=== PATIENT | male | born 1955 | race African-American/Black ===

== ENCOUNTER 2016-07-08 23:52 | Emergency (ER) | payer OTHER ==
[~2016-07-08] VITALS: Ht 188 cm; Wt 68.0 kg
--- NOTE | ~2016-07-08 | EKG ---
[address] [place] [address] ELECTROCARDIOGRAM REPORT Name: CARIDAD JORDAN Room #: DEP JULIANNA West#: [id number] Admission: 07/08/16 Attend Phys: Discharge: 07/09/16 Date of : 55 Report #: [id number] THIS REPORT FOR: //name// [facility] ED Test Date: 2016-07-09 Test Time: 00:04:02 Pat Name: CARIDAD JORDAN Department: Room: Gender: M [employer] Digging Machine Operator: REZA : 1955 Requested By: Gloria Gonzalez Order Number: [id number] MD: Measurements Intervals Edward Rate: 64 P: 80 SC: 193 QRS: 11 QRSD: 98 T: 83 QT: 402 QTc: 415 Interpretive Statements Sinus rhythm Right atrial enlargement Consider right ventricular hypertrophy Nonspecific T abnormalities, lateral leads Minimal ST elevation, inferior leads No previous ECG available for comparison [email or web address] By: 0004 0004 Mayra Nunez MD /EPI
[~2016-07-08 23:52] MED LIST: AMLODIPINE; BAYER CHEWABLE81 MG PO; FLEXERIL PO; KEFLEX500 MG PO; NICOTINE TRANSD14 M1 TRANSDERM; NORCO 5-325 TA1 EACH PO; NORVASC 5 MG TAB5 MG PO; RISPERDAL0.5 MG PO; TAMSULOSIN HCL0.4 M1 PO
[2016-07-09 00:32] LABS: ABSOLUTE NEUTROPHILS 3.2 thou/uL (1.4-8.2); BASOPHILS 0.8 % (0.0-2.0); EOSINOPHILS 2.4 % (0.0-3.0); HEMATOCRIT 46.5 % (42.0-52.0); HEMOGLOBIN 15.4 gm/dL (14.0-18.0); LYMPHOCYTES 45.3 % (24.0-44.0); MCH 30.3 pg (26.0-34.0); MCHC 33.1 g/dL (28.0-37.0); MCV 91.6 fL (80.0-100.0); MONOCYTES 9.3 % (1.0-8.0); PLATELET COUNT 276 thou/uL (150-400); POLYS 42.2 % (36.0-66.0); RBC 5.07 mil/uL (4.50-6.00); RDW 14.1 % (10.5-14.5); WBC 7.7 thou/uL (4.0-11.0)
[2016-07-09 00:40] LABS: ANION GAP 11 mmol/L (7-16); BUN 9 mg/dL (7-18); CALCIUM 9.1 mg/dL (8.5-10.1); CHLORIDE 107 mmol/L (98-107); CO2 25 mmol/L (21-32); GLUCOSE 91 mg/dL (70-99); MANUAL DIFF NO; POTASSIUM 3.9 mmol/L (3.5-5.1); SODIUM 143 mmol/L (136-145)
[2016-07-09 00:47] LABS: ALBUMIN 4.1 g/dL (3.4-5.0); ALKALINE PHOSPHATASE 77 U/L (46-116); SGOT 25 U/L (15-37); SGPT 20 U/L (30-65); TOTAL BILIRUBIN 0.2 mg/dL (<0.1-1.0); TOTAL PROTEIN 7.7 g/dL (6.4-8.2); TROPONIN-I < 0.04 ng/mL (<0.04-0.07)
[2016-07-09 00:48] LABS: APTT 22.5 Seconds (24.5-32.8); PROTIME 9.3 Seconds (9.3-11.4)
[2016-07-09 02:06] LABS: URINE BILIRUBIN NEGATIVE (Negative); URINE BLOOD TRACE (Negative); URINE COLOR YELLOW; URINE GLUCOSE-RANDOM* NEGATIVE (Negative); URINE KETONES NEGATIVE (Negative); URINE LEUKOCYTES-REFLEX NEGATIVE (Negative); URINE PROTEIN (DIPSTICK) NEGATIVE (Negative); URINE UROBILINOGEN 0.2 E.U./dl (0.2-1.0)
[2016-07-09 02:18] LABS: AMP/METHAMP Negative (Negative); BARBITURATES Negative (Negative); BENZODIAZEPINES Negative (Negative); COCAINE Negative (Negative); METHADONE Negative (Negative); OPIATES Negative (Negative); PCP Negative (Negative); THC POSITIVE (Negative)
[2016-07-09] MEDS ORDERED: NORVASC5 M1 PO (02:18)
== END 2016-07-09 02:34 | disposition home or self-care (01) ==
LOC: ER 23:52
PROVIDERS: Emergency Medicine
DX: R55 Syncope and collapse (principal); G45.8 Other transient cerebral ischemic attacks and related syndromes; F31.9 Bipolar disorder, unspecified; I10 Essential (primary) hypertension; F17.210 Nicotine dependence, cigarettes, uncomplicated; F10.99 Alcohol use, unspecified with unspecified alcohol-induced disorder

== ENCOUNTER → 2018-06-20 | Outpatient (CLI) | payer OTHER ==
[~2018-06-20] MED LIST changes: +CLEOCIN HCL150 MG PO; +NORVASC5 M1 PO
== END ==
LOC: MRI 09:30
DX: I67.82 Cerebral ischemia (principal); I63.9 Cerebral infarction, unspecified; R41.3 Other amnesia; Z86.73 Personal history of transient ischemic attack (TIA), and cerebral infarction without residual deficits

== ENCOUNTER → 2018-08-15 | Outpatient (CLI) | payer OTHER ==
[2018-08-15 09:32] LABS: ALBUMIN 4.1 g/dL (3.4-5.0); CALCIUM 9.2 mg/dL (8.5-10.1); CREATININE 0.9 mg/dL (0.7-1.3); POTASSIUM 4.6 mmol/L (3.5-5.1); TOTAL BILIRUBIN 0.4 mg/dL (<0.1-1.0)
== END ==
LOC: CAT 08:50 → EDSTATUS 16:39
PROVIDERS: Registered Nurse General Practice
DX: R41.82 Altered mental status, unspecified (principal); M47.812 Spondylosis without myelopathy or radiculopathy, cervical region; Z86.73 Personal history of transient ischemic attack (TIA), and cerebral infarction without residual deficits

== ENCOUNTER 2019-10-14 13:29 | Emergency (ER) | payer OTHER ==
[~2019-10-14] VITALS: Ht 188 cm; Wt 68.0 kg
[2019-10-14 14:09] LABS: HEMATOCRIT 42.2 % (42.0-52.0); HEMOGLOBIN 14.4 gm/dL (14.0-18.0); MCH 31.7 pg (26.0-34.0); MCHC 34.1 g/dL (28.0-37.0); MCV 93.2 fL (80.0-100.0); PLATELET COUNT 238 thou/uL (150-400); RBC 4.53 mil/uL (4.50-6.00); RDW 15.3 % (10.5-14.5)
[2019-10-14 14:13] LABS: ANION GAP 12 mmol/L (7-16); BUN 10 mg/dL (7-18); CALCIUM 8.8 mg/dL (8.5-10.1); CHLORIDE 102 mmol/L (98-107); CO2 24 mmol/L (21-32); CREATININE 0.9 mg/dL (0.7-1.3); GLUCOSE 81 mg/dL (74-106); SODIUM 138 mmol/L (136-145)
[2019-10-14 14:23] LABS: ALBUMIN 3.8 g/dL (3.4-5.0); SGOT 36 U/L (15-37); SGPT 42 U/L (30-65); TOTAL BILIRUBIN 0.3 mg/dL (0.2-1.0); TOTAL PROTEIN 7.7 g/dL (6.4-8.2); TROPONIN-I <0.06 ng/mL (<0.06)
[2019-10-14 15:34] LABS: ABSOLUTE NEUTROPHILS 2.4 thou/uL (1.4-8.2)
[2019-10-14 15:35] LABS: ANISOCYTOSIS 1+; POLYCHROMASIA OCCASIONAL; TARGET CELLS OCCASIONAL
[2019-10-14] MEDS ORDERED: PROAIR HFA8.5 GM INH (15:48)
[2019-10-14] MEDS ORDERED: ZOFRAN ODT4 MG PO (15:48)
--- NOTE | 2019-10-14 16:08 | EKG ---
[facility] [place] [address] ELECTROCARDIOGRAM REPORT Name: CARIDAD JORDAN Room #: REG [facility]#: [id number] Admission: 10/14/19 Attend Phys: Discharge: Date of : 55 Report #: [id number] THIS REPORT FOR: cc: FAM - Family physician unknown FAM - Family physician unknown Stepan Morocho MD [facility] ~ THIS REPORT FOR: //name// [facility] ED Test Date: 2019-10-14 Test Time: 13:40:58 Pat Name: CARIDAD JORDAN Department: Room: Gender: M Nail Specialist: ESHEETS : 1955 Requested By: Danae Rodriguez Order Number: [id number] MD: Stepan Morocho Measurements Intervals Browns Rate: 78 P: 88 IL: 163 QRS: -4 QRSD: 94 T: 71 QT: 427 QTc: 487 Interpretive Statements Sinus rhythm Biatrial enlargement RSR' in V1 or V2, right VCD Minimal ST elevation, anterior leads Borderline prolonged QT interval Compared to ECG 07/09/2016 00:04:02 No significant change was found Electronically Signed On 10-14-2019 16:07:37 CDT by Stepan Morocho [email or web address] <ELECTRONICALLY SIGNED> By: Stepan Morocho MD, [facility] 10/14/19 1607 1340 1340 Stepan Morocho MD, [facility] /EPI
[2019-10-14 16:25] VITALS: BP 155/99
== END 2019-10-14 16:25 | disposition home or self-care (01) ==
LOC: ER 13:29
PROVIDERS: Nurse Practitioner Family
DX: R05 Cough (principal); R09.81 Nasal congestion; R06.02 Shortness of breath; R11.2 Nausea with vomiting, unspecified; I10 Essential (primary) hypertension; F17.210 Nicotine dependence, cigarettes, uncomplicated; Z79.899 Other long term (current) drug therapy; Z20.828 Contact with and (suspected) exposure to other viral communicable diseases